=== PATIENT | female | born 1955 | race Caucasian/White ===

== ENCOUNTER 2020-01-21 | Emergency (ER) | payer MEDICARE, OTHER ==
[2020-01-21] MEDS ORDERED: ZESTRIL10 M1 PO (17:08)
[2020-01-21] MEDS ORDERED: MULTI VITAMIN D1 TAB PO (17:08)
[2020-01-21] MEDS ORDERED: ALTOPREV40 MG PO (17:08)
[2020-01-21] MEDS ORDERED: FISH OIL1 CAP PO (17:09)
[2020-01-21] MEDS ORDERED: ADVANCED FIBER COMPL PO (17:09)
[2020-01-21 17:27] LABS: HEMATOCRIT 41.9 % (37.0-47.0); HEMOGLOBIN 13.6 g/dl (12.0-16.0); IMMATURE GRANULOCYTES 0.2 % (0.0-5.0); MEAN CELL VOLUME 92.3 fL CALC (80.0-100.0); MEAN CORPUSCULAR HGB CONC 32.5 g/dL CAL (32.0-36.0); NEUT# 2.3 thou/uL (2.00-7.15); RED BLOOD COUNT 4.54 mill/uL (4.20-5.60); RED CELL DISTRI WIDTH 12.9 % (11.5-15.5)
[2020-01-21 17:29] LABS: URINE BILIRUBIN - DIPSTICK NEGATIVE (NEGATIVE); URINE BLOOD DIPSTICK TRACE-INTACT (NEGATIVE); URINE COLOR YELLOW; URINE GLUCOSE - DIPSTICK NEGATIVE (NEGATIVE); URINE KETONE NEGATIVE (NEGATIVE); URINE LEUK ESTERASE NEGATIVE (NEGATIVE); URINE NITRITE - DIPSTICK NEGATIVE (Negative); URINE PROTEIN - DIPSTICK TRACE mg/dL (NEG-TRACE); URINE SPECIFIC GRAVITY 1.025; URINE UROBILINOGEN - DIPSTICK 0.2 E.U./dL (0.2)
[2020-01-21 17:41] LABS: ALBUMIN 4.6 g/dL (3.2-5.0); ALKALINE PHOSPHATASE 75 u/l (38-126); ANION GAP 15 (6-22 (CALC)); BILIRUBIN, TOTAL 0.5 mg/dL (0.0-1.4); BUN 19 mg/dL (8-23); BUN/CREATININE RATIO 23 (12-20 (CALC)); CARBON DIOXIDE 26 mmol/l (22-30); CHLORIDE 99 mmol/l (95-108); CREATININE 0.8 mg/dL (0.5-1.0); GFR > 60 ML/MIN (>=60 (CALC)); GFR FOR AFR.AMER. > 60 ML/MIN (>=60 (CALC)); LIPASE 132 u/l (23-300); POTASSIUM 4.6 mmol/l (3.5-5.1); SGOT/AST 51 u/l (9-36); SODIUM 136 mmol/l (137-146); TOTAL PROTEIN 7.6 g/dL (6.3-8.2)
[2020-01-21] MEDS ORDERED: MIRALAX3350 N1 PO (19:13)
== END 2020-01-21 19:37 | disposition home or self-care (01) ==
PROVIDERS: Family Medicine
DX: K59.00 Constipation, unspecified (principal); I10 Essential (primary) hypertension
CPT/HCPCS: Q9967

== ENCOUNTER 2023-12-23 13:43 | Observation (INO) | payer MEDICARE, OTHER ==
[2023-12-23] VITALS (16 sets, daily range): BP systolic 141–182; BP diastolic 53–98
[~2023-12-23] VITALS: Ht 160 cm; Wt 85.8 kg
[~2023-12-23 13:43] MED LIST: ADVANCED FIBER COMPL PO; ALTOPREV40 MG PO; FISH OIL1 CAP PO; MIRALAX3350 N1 PO; MULTI VITAMIN D1 TAB PO; ZESTRIL10 M1 PO
[2023-12-23 15:36] LABS: URINE BILIRUBIN - DIPSTICK Negative (NEGATIVE); URINE BLOOD DIPSTICK Small (NEGATIVE); URINE GLUCOSE - DIPSTICK Negative (NEGATIVE); URINE KETONE Negative (NEGATIVE); URINE LEUK ESTERASE Negative (NEGATIVE); URINE NITRITE - DIPSTICK Negative (Negative); URINE PH 6.5 (4.5-8.0); URINE PROTEIN - DIPSTICK 100 mg/dL (NEG-TRACE); URINE SPECIFIC GRAVITY 1.025; URINE UROBILINOGEN - DIPSTICK 0.2 E.U./dL (0.2)
[2023-12-23 15:40] LABS: URINE COLOR Yellow
[2023-12-23 15:41] LABS: URINE SQUAMOUS EPITHELIAL CELL FEW EPI/hpf (0-FEW)
--- NOTE | 2023-12-23 15:41 | NUR ---
PT TO ROOM WITH STEADY GAIT
--- NOTE | 2023-12-23 15:51 | NUR ---
pt ambulatory to bathroom.
--- NOTE | 2023-12-23 15:53 | NUR ---
PT TO RESTROOM FOR THIRD TIME IN 10 MIN, PT REQ A BSC. PT PROVIDED A COMODE. REPORTS STABBING PAINS WHEN AMBULATING.
[2023-12-23] MEDS ORDERED: SODIUM CHLORIDE 0.9% 1,000 ML IV ONE (15:55)
[2023-12-23] MEDS ORDERED: KETOROLAC TROMETHAMINE 30 MG/ML SDV IV ONE (16:00)
[2023-12-23] MEDS ORDERED: PHENAZOPYRIDINE HCL 100 MG/TAB PO ONE (16:00)
--- NOTE | 2023-12-23 16:07 | NUR ---
PT MEDICATED, BSC AT BEDSIDE, PT EDUCATED ON POC AND WAIT TIME.
[2023-12-23] MEDS ORDERED: LEVOTHYROXIN25 MC1 PO (16:10)
[2023-12-23 16:24] LABS: BASO% 0.3 % (0-3); EOS% 1.5 % (0-8); HEMATOCRIT 41.5 % (37.0-47.0); HEMOGLOBIN 13.5 g/dl (12.0-16.0); IMMATURE GRANULOCYTES 0.4 % (0.0-5.0); LYMPH% 16.5 % (15-41); MEAN CELL VOLUME 94.1 fL CALC (80.0-100.0); MEAN CORPUSCULAR HGB 30.6 pG CALC (26.0-32.0); MEAN CORPUSCULAR HGB CONC 32.5 g/dL CAL (32.0-36.0); MONO% 8.8 % (2-13); NEUT# 6.83 thou/uL (2.00-7.15); NEUT% 72.5 % (42-76); RED BLOOD COUNT 4.41 mill/uL (4.20-5.60); RED CELL DISTRI WIDTH 12.8 % (11.5-15.5)
[2023-12-23 16:39] LABS: ALBUMIN 4.8 g/dL (3.2-5.0); ALKALINE PHOSPHATASE 97 u/l (38-126); ANION GAP 15 (6-22 (CALC)); BILIRUBIN, TOTAL 0.2 mg/dL (0.02-1.3); BUN 18 mg/dL (8-23); BUN/CREATININE RATIO 23 (12-20 (CALC)); CARBON DIOXIDE 25 mmol/l (22-30); CHLORIDE 105 mmol/l (95-108); CREATININE 0.8 mg/dL (0.5-1.0); GFR FOR AFR.AMER. > 60 ML/MIN (>=60 (CALC)); GFR OTHER RACES > 60 ML/MIN (>=60 (CALC)); POTASSIUM 4.4 mmol/l (3.5-5.1); SGOT/AST 28 u/l (9-36); SODIUM 141 mmol/l (137-146); TOTAL PROTEIN 7.8 g/dL (6.3-8.2)
--- NOTE | 2023-12-23 17:10 | NUR ---
PT IN ROOM RESTING WITH EYES OPEN. SPOUS EIN ROOM AT [facility]. PT HAS NO CONCERNS TO REPORT. PT HAS BEDSIDE COMMODE IN ROOM AND HAS BEEN USING IT. VSS
[2023-12-23] MEDS ORDERED: MORPHINE SULFATE 4 MG/ML VIAL IV ONE (18:10)
--- NOTE | 2023-12-23 18:10 | NUR ---
PT IN ROOM RESTING WATCHING TV. VITALS ARE STABLE, NO CONCERNS TO REPORT AT THIS TIME
--- NOTE | 2023-12-23 19:10 | NUR ---
PT IN ROOM HAVING DINNER AT THIS TIME. VSS, LEFT AND STATED HE WILL RETURN IN THE MORNING. PT HAS NO ISSUES OR CONCERNS TO REPORT AT THIS TIME.
[2023-12-23] MEDS ORDERED: SODIUM CHLORIDE 0.9% 1,000 ML IV PRN (19:45)
[2023-12-23] MEDS ORDERED: ACETAMINOPHEN 325 MG/TAB PO PRN (19:45)
[2023-12-23] MEDS ORDERED: MAGNESIUM HYDROXIDE 30 ML UDC PO PRN (19:45)
--- NOTE | 2023-12-23 20:32 | NUR ---
PT RESTING IN BED. VSS. PT STATES SHE DOES NOT WANT PAIN MEDS AT THE MOMENT THAT SHE WANT TO HOLD OFF. THIS URSE STATES UNDERSTANDNG.
[2023-12-23] MEDS ORDERED: ENOXAPARIN SODIUM 40 MG/0.4 ML SYR SC SCH (21:00)
--- NOTE | 2023-12-23 22:31 | NUR ---
REPORT CALLED AND GIVEN TO RUSSELL ON [facility]. PT BEING BROUGHT UP VIA WHEELCHAIR.
--- NOTE | 2023-12-24 | NUR ---
PATIENT ADMITTED FROM ER VIA WHEELCHAIR WITH ER STAFF IN ATTENDANCE. PATIENT ADMITTED FOR ABD/PELVIC PAIN. PATIENT IS AMBULATORY AND ABLE TO TRANSFER TO THE BED. PATIENT STATES THAT SHE HAS BEEN HAVING DIARRHEA ON AND OFF FOR SEVERAL DAYS ALONG WITH ABD/PELVIC PAIN. FEELING BLOATED. PATIENT WITH IV SITE TO RIGHT AC INTACT AND HEALTHY WITH GOOD BLOOD RETURN WHEN FLUSHED. IVF NS HUNG AND INFUSING AT 100CC/HR. LUNGS ARE CLEAR. ABD IS SOFT WITH ACTIVE BS. LAST BM WASW YESTERDAY 12/23/23. VOIDING BUT SOMETIMES FEELS LIKE SHE IS NOT EMPTING COMPLETELY-DOES WEAR BREIF AT HOME FOR LEAKAGE. BLADDER SCAN WAS DONE FOR 93CC IN BLADDER. NO PERIPHERAL EDEMA NOTED. PULSES ARE PALPABLE. TELE MONITOR IN PLACE. ORIENTED TO ROOM AND SURROUNDINGS. INSTRUCTED ON USE OF NURSE CALL LIGHT AND TV REMOTE. SAFETY PRECAUTIONS REINFORCED. PATIENT STATES THAT SHE DID HAVE A FALL EARLIER IN THE MONTH WHEN ON A CRUISE. NO X-RAYS WERE DONE AT THAT TIME. MEDICATED FOR PAIN WITH TYLENOL 650MG PO FOR PAIN. CALL LIGHT IN REACH. WILL CONT TO MONITOR.
[2023-12-24 00:02] VITALS: BP 155/62
--- NOTE | 2023-12-24 03:50 | NUR ---
PATIENT RESTING IN BED AT THIS TIME. EYES CLOSED AND RESPS ARE EVEN AND UNLABORED. IVF NS PATENT AND INFUSING VIA RAC SITE AT 100CC/HR. TELE MONITOR IN PLACE READING SR-70'[id number]. CALL LIGHT IN REACH. WILL CONT TO MONITOR.
--- NOTE | 2023-12-24 04:42 | NUR ---
PATIENT RESTING IN BED-C/O NAUSEA, INDIGESTION. PROVIDED WITH GINGERALE. IVF PATENT AND INFUSING VIA RIGHT AC SITE AT 100CC/HR. TELE MONITOR IN PLACE WITH LAST READING SR-72. CALL LIGHT IN REACH. WILL CONT TO MONITOR.
[2023-12-24 04:49] VITALS: BP 125/61
[2023-12-24 05:27] LABS: BASO% 0.4 % (0-3); EOS% 2.2 % (0-8); HEMATOCRIT 38.3 % (37.0-47.0); HEMOGLOBIN 12.4 g/dl (12.0-16.0); IMMATURE GRANULOCYTES 0.4 % (0.0-5.0); LYMPH% 31.4 % (15-41); MEAN CELL VOLUME 94.8 fL CALC (80.0-100.0); MEAN CORPUSCULAR HGB 30.7 pG CALC (26.0-32.0); MEAN CORPUSCULAR HGB CONC 32.4 g/dL CAL (32.0-36.0); MONO% 10.5 % (2-13); NEUT# 3.79 thou/uL (2.00-7.15); NEUT% 55.1 % (42-76); RED BLOOD COUNT 4.04 mill/uL (4.20-5.60); RED CELL DISTRI WIDTH 12.9 % (11.5-15.5)
[2023-12-24 05:40] LABS: ANION GAP 10 (6-22 (CALC)); BUN 16 mg/dL (8-23); BUN/CREATININE RATIO 22 (12-20 (CALC)); CARBON DIOXIDE 26 mmol/l (22-30); CHLORIDE 110 mmol/l (95-108); CREATININE 0.7 mg/dL (0.5-1.0); GFR FOR AFR.AMER. > 60 ML/MIN (>=60 (CALC)); GFR OTHER RACES > 60 ML/MIN (>=60 (CALC)); POTASSIUM 4.1 mmol/l (3.5-5.1); SODIUM 142 mmol/l (137-146)
[2023-12-24 06:57] VITALS: BP 127/56
--- NOTE | 2023-12-24 08:26 | NUR ---
PT UP AMBULATING ROOM WITH STEADY GAIT. PT A/OX3. RESPIRATIONS EVEN AND UNLABORED ON ROOM AIR. LUNG SOUNDS CLEAR. HEART RHYTHM NORMAL. BOWEL SOUDS ACTIVE. #20G RAC IFUSING WITH IVF PER ORDER. SKIN INTACT. PT C/O 01/04 PAIN IN LEFT LOWER BACK, PT TO BE MEDICATED PER EMAR. PT DENIES OF ANY ADDIITONAL NEEDS. PT ORIENTED TO ROOM AND CALL LIGHT SYSTEM. ALL SAFETY PRECAUTIONS ARE IN PLACE WITH CALL LIGHT IN REACH.
[2023-12-24 10:58] VITALS: BP 134/66
[2023-12-24] MEDS ORDERED: LIDOCAINE 4 % PATCH TD SCH (11:00)
--- NOTE | 2023-12-24 12:06 | NUR ---
PT SITTING ON SIDE OF BED. RESPIRATIONS EVEN AND UNLABORED ON ROOM AIR. TELE MONITORING IN PLACE. IV INFUSING WITH IVF PER ORDER. LIDOCAINE PATCH PLACED IN LEFT LOWER BACK. PT EDUCATED ON REMOVAL OF LIDOCAINE PATCH IN 12 HOURS. PT DENIES OF ANY ADDITIONAL NEEDS. ALL SAFETY PRECAUTIONS ARE IN PLACE WITH CALL LIGHT IN REACH.
[2023-12-24] MEDS ORDERED: LIDOCAINE MAXIMUM4 % TD (12:54)
--- NOTE | 2023-12-24 14:28 | NUR ---
PT EDUCATED ON DC INSTRUCTIONS AND NEW MEDICATIONS. PT VERBALIZED UNDERSTANDING. IV REMOVED WITH CATH INTACT. TELE REMOVED. ER INFORMED.
--- NOTE | 2023-12-24 14:43 | NUR ---
PT DC HOME IN STABLE CONDITION VIA ROLLING WALKER ACCOPAINED BY . REFUSED WHEELCHAIR. PT DC WITH ALL PERSONAL BELONGINGS.
== END 2023-12-24 14:43 | disposition home or self-care (01) ==
LOC: ED 13:43 → MS2 19:17
PROVIDERS: Family Medicine; ADMIT Student in an Organized Health Care Education/Training Program; ATTEND Student in an Organized Health Care Education/Training Program
DX: R10.30 Lower abdominal pain, unspecified (principal); M54.41 Lumbago with sciatica, right side; I10 Essential (primary) hypertension; K57.30 Diverticulosis of large intestine without perforation or abscess without bleeding; E78.5 Hyperlipidemia, unspecified; Z90.49 Acquired absence of other specified parts of digestive tract
CPT/HCPCS: J1650